=== PATIENT | female | born 1960 | race Caucasian/White ===

== ENCOUNTER → 2018-11-29 | Day surgery (SDC) | payer OTHER ==
[~2018-11-29] MED LIST: PROPOFOL 40 ML
== END | disposition home or self-care (01) ==
LOC: GIL 10:05
DX: Z12.11 Encounter for screening for malignant neoplasm of colon (principal); K64.8 Other hemorrhoids; E66.9 Obesity, unspecified; Z68.35 Body mass index [BMI] 35.0-35.9, adult
CPT/HCPCS: 45378